=== PATIENT | female | born 1960 | race Caucasian/White ===

== ENCOUNTER 2022-05-06 10:09 | Emergency (ER) | payer OTHER, SELFPAY ==
[2022-05-06 10:14] VITALS: BP 148/78; RESP 16; TEMP 36.3; O2SAT 97; BMI 28.2
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
[2022-05-06] MEDS: ACETAMINOPHEN 500 MG TABLET 1000 MG PO (11:14)
--- OUTSIDE RECORDS SUMMARY | 2022-05-06 11:26 | XMS_ITS | Clinical Summary ---
:1960 Author Organization [facility] [place] [address] Care Team Providers Name Role Phone Pcp, No Primary Care Provider Unavailable Allergies No known active allergies Medications No known medications Active Problems No known active problems Family History Medical History Relation Name Comments Cancer Father Good Health Mother Diabetes Sister Relation Name Status Comments Father Mother Sister Social History Tobacco Use Types Packs/Day Years Used Date Never Smoker Smokeless Tobacco: Never Used Alcohol Use Standard Drinks/Week Comments Not Asked 0 (1 standard drink = 0.6 oz pure alcoho l) Sex Assigned at Date Recorded Not on file Obstetrics History Last Filed Vital Signs Vital Sign Reading Time Taken Comments Blood Pressure 158/84 10/02/2020 2:15 PM CDT Pulse 66 10/02/2020 2:16 PM CDT Temperature 36.8 ??C (98.3 ??F) 10/02/2020 2:15 PM CDT Respiratory Rate 16 10/02/2020 2:15 PM CDT Oxygen Saturation 97% 10/02/2020 2:16 PM CDT Inhaled Oxygen Concentration - - Weight 83.9 kg (185 lb) 10/02/2020 2:15 PM CDT Height 170.2 cm (5' 7) 10/02/2020 2:15 PM CDT Body Mass Index 28.98 10/02/2020 2:15 PM CDT Plan of Treatment Health Maintenance Due Date Last Done Comments COVID-19 vaccine series (#1) 1960 Tdap 1971 Depression screening for age 12+ 1972 BMI (ht and wt on same day) for age 18+ 1978 Hepatitis C screening for age 18-79 1978 Tetanus booster 1980 Pap test for age 21-65 1981 Colonoscopy through age 75 2005 Lipids for age 45-75 2005 Mammogram for age 45-75 2005 Zoster (shingles) series for age 50+ (1 of 2) 2010 Influenza for age 50-64 02/27/2022 Results Not on filefrom Last 3 Months Insurance Payer Benefit Plan / Subscriber ID Effective Dates Phone Addre ss Type Group BLUE [employer]OSS [employer] OF [id number] 2014-Present [address] [place] [address] Care Teams 

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
[2022-05-06] MEDS: TETANUS/DIPHTH/PERTUSSIS 0.5 ML SYRINGE IM (13:42)
== END 2022-05-06 13:44 | disposition home or self-care (01) ==
PROVIDERS: Emergency Provider Family Medicine
DX: S09.90XA Unspecified injury of head, initial encounter (principal); S01.01XA Laceration without foreign body of scalp, initial encounter; V43.52XA Car driver injured in collision with other type car in traffic accident, initial encounter; Y93.89 Activity, other specified; Y92.9 Unspecified place or not applicable; Y99.9 Unspecified external cause status
CPT/HCPCS: 12001; 70450; 72125; 90471; 90715; 99284; A9270